=== PATIENT | female | born 1950 | race Asian ===

== ENCOUNTER 2023-09-10 15:39 | Outpatient (CLI) | payer OTHER ==
[~2023-09-10 15:39] MED LIST: CHOL400T7 PO; DIVA125E1 PO; FAMO-90 PO; GALA8TAB PO; LABE100T20 PO; LORA-476 PO; MULT-2173 PO
[2023-09-10 16:45] LABS: ANION GAP 9.5 (8-16); CARBON DIOXIDE 30.7 mmol/L (21-32); CHLORIDE 93 mmol/L (98-107); GLUCOSE 141 mg/dL (74-106); POTASSIUM 4.2 mmol/L (3.5-5.1); SODIUM SERUM 129 mmol/L (136-145)
[2023-09-10 16:46] LABS: ALANINE AMINOTRANSFERASE 39 U/L (12-78); ALKALINE PHOSPHATASE 95 U/L (50-136); ASPARTATE AMINOTRANSFERASE 26 U/L (15-37); CALCIUM 8.5 mg/dL (8.5-10.1); CREATININE 0.7 mg/dL (0.6-1.3); TOTAL BILIRUBIN 0.3 mg/dL (0.0-1.0); UREA NITROGEN, BLOOD 8 mg/dL (7-18)
[2023-09-10 16:47] LABS: ALBUMIN 3.2 g/dL (3.4-5.0); CHOL/HDL RATIO 3.1 (1-4.5); CHOLESTEROL 180 mg/dL (<200); HDL CHOLESTEROL 58 mg/dL (40-60); LDL (CALC) 87 mg/dL (60-100); THYROID STIMULATING HORMONE 2.76 uIU/mL (0.34-3.74); TRIGLYCERIDES 177 mg/dL (30-150)
[2023-09-10 16:48] LABS: RED BLOOD CELL COUNT(AUTO) 4.22 MIL/uL (4.20-5.40); WHITE BLOOD COUNT (AUTO) 5.4 K/uL (4.8-10.8)
[2023-09-10 16:49] LABS: HEMATOCRIT 37.9 % (36-48); MEAN CORPUSCULAR HEMOGLOBIN 31 pg (27-31); MEAN CORPUSCULAR HGB CONC 34 g/dL (33-37); MEAN CORPUSCULAR VOLUME 89.6 fL (80-94); PLATELET COUNT (AUTO) 273 K/uL (140-450); RED CELL DISTRIBUTION WIDTH 13.5 % (11.6-13.7)
[2023-09-10 16:50] LABS: BASOPHILS % (AUTO) 0.5 % (0.0-2.0); EOSINOPHILS # (AUTO) 0.1 K/uL (0-0.4); EOSINOPHILS % (AUTO) 2.7 % (0.0-4.0); LYMPHOCYTES # (AUTO) 0.7 K/uL (2.5-16.5); LYMPHOCYTES % (AUTO) 13.6 % (20.5-51.1); MONOCYTES # (AUTO) 0.6 K/uL (0.8-1.0); MONOCYTES % (AUTO) 10.6 % (1.7-9.3); NEUTROPHILS # (AUTO) 3.9 K/uL (1.8-7.7); NEUTROPHILS % (AUTO) 72.6 % (42.2-75.2)
== END 2023-09-10 17:49 | disposition home or self-care (01) ==
LOC: MLB 15:39
PROVIDERS: ATTEND Family Medicine
DX: F03.90 Unspecified dementia, unspecified severity, without behavioral disturbance, psychotic disturbance, mood disturbance, and anxiety (principal); Z79.899 Other long term (current) drug therapy
CPT/HCPCS: 36415; 80053; 83036; 84443; 85025